=== PATIENT | male | born 1990 | race Caucasian/White ===

== ENCOUNTER 2024-09-10 16:24 | Emergency (ER) | payer MEDICAID, MEDICARE ==
[2024-09-10 16:57] LABS: BASOPHILS ABSOLUTE AUTO 0.02 10^3/uL (0.00-0.10); BASOPHILS PERCENT AUTO 0.2 % (0.0-1.0); EOSINOPHILS ABSOLUTE AUTO 0.18 10^3/uL (0.10-0.30); EOSINOPHILS PERCENT AUTO 1.7 % (1.0-3.0); HEMATOCRIT 38.2 % (40.0-52.0); HEMOGLOBIN 12.5 g/dL (13.0-17.0); IMMATURE GRAN ABSOLUTE AUTO 0.03 10^3/uL (0.00-0.04); IMMATURE GRAN PERCENT AUTO 0.3 % (0.0-0.4); LYMPHOCYTES ABSOLUTE AUTO 2.83 10^3/uL (1.00-4.00); LYMPHOCYTES PERCENT AUTO 26.4 % (20.0-40.0); MEAN CORPUSCULAR HEMOGLOBIN 29.8 pg (27.0-31.0); MEAN CORPUSCULAR HGB CONC 32.7 g/dL (32.0-36.0); MEAN CORPUSCULAR VOLUME 91.2 fL (82.0-92.0); MEAN PLATELET VOLUME 10.2 fL (7.4-10.4); MONOCYTES ABSOLUTE AUTO 1.04 10^3/uL (0.10-0.80); MONOCYTES PERCENT AUTO 9.7 % (2.0-8.0); NEUTROPHILS ABSOLUTE AUTO 6.62 10^3/uL (2.50-7.00); NEUTROPHILS PERCENT AUTO 61.7 % (50.0-70.0); PLATELET COUNT,PLT 213 10^3/uL (150-400); RED BLOOD CELL COUNT 4.19 10^6/uL (4.50-6.00); WHITE BLOOD CELL COUNT,WBC 10.72 10^3/uL (5.00-10.00)
[2024-09-10] MEDS: Sodium Chloride 0.9% 1,000 ML IV SCH (17:14)
[2024-09-10] MEDS: fentaNYL 100 MCG/2 ML SDV IVPUSH ONE ×2 (17:20→18:28)
[2024-09-10 17:33] LABS: ALANINE AMINOTRANSFERASE,ALT 43 U/L (14-63); ALBUMIN 2.68 g/dL (3.40-5.00); ALKALINE PHOSPHATASE 117 U/L (46-116); ANION GAP 12.1 mmol/L (5-15); ASPARTATE AMNIOTRANSFERASE,AST 33 U/L (15-37); BILIRUBIN TOTAL 0.1 mg/dL (0.2-1.0); BLOOD UREA NITROGEN,BUN 42 mg/dL (7-18); CALCIUM 9.4 mg/dL (8.7-10.3); CARBON DIOXIDE,CO2 30.4 mmol/L (21.0-32.0); CHLORIDE,CL 102 mmol/L (98-107); CREATININE 2.91 mg/dL (0.51-1.17); GLUCOSE RANDOM 109 mg/dL (70-140); POTASSIUM,K 4.5 mmol/L (3.5-5.1); PROTEIN TOTAL,TP 7.7 g/dL (6.4-8.2); SODIUM,NA 140 mmol/L (136-145)
[2024-09-10 17:46] LABS: C-REACTIVE PROTEIN 33.09 mg/dL (0.00-0.50); ESTIMATED GFR 28 mL/min (>=60)
[2024-09-10 18:08] LABS: APPEARANCE,URINE TURBID (CLEAR); COLOR,URINE OTHER (YELLOW); PH,URINE 6.5 (5.0-9.0)
[2024-09-10 18:09] LABS: BILIRUBIN,URINE SMALL (NEGATIVE); EPITHELIAL CELLS,URINE RARE /LPF; GLUCOSE,URINE NEGATIVE (NEGATIVE); KETONES,URINE TRACE mg/dL (NEGATIVE); LEUKOCYTE ESTERASE,URINE LARGE (NEGATIVE); NITRITE,URINE POSITIVE (NEGATIVE); OCCULT BLOOD,URINE LARGE (NEGATIVE); PROTEIN,URINE >=300 mg/dL (NEGATIVE); RBC,URINE 20-30 /HPF (0-5); WBC,URINE PACKED /HPF (0-5)
[2024-09-10 18:10] LABS: BACTERIA,URINE MANY /HPF (NONE TO FEW)
[2024-09-10] MEDS: cefTRIAXone 2 GM Vial IVPUSH ONE (18:20)
[2024-09-10] MEDS: Acetaminophen 500 MG Tab PO ONE (18:28)
[2024-09-10 21:09] VITALS: BP 131/86; PULSE 109
== END 2024-09-10 19:45 ==
LOC: KA.ED 16:24
DX: N17.9 Acute kidney failure, unspecified (principal); N13.6 Pyonephrosis; Z88.5 Allergy status to narcotic agent; Z88.1 Allergy status to other antibiotic agents; Z79.899 Other long term (current) drug therapy
CPT/HCPCS: 36415; 74176; 80053; 81001; 83605; 85025; 86140; 87040; 96361; 96374; 96375; 96376; 99285-25; A9270-GY; J0696; J3010; J7030

== ENCOUNTER 2024-09-22 14:57 | Emergency (ER) | payer MEDICARE ==
[2024-09-22] MEDS: Acetaminophen/HYDROcodone 325-5 MG Tab PO ONE (15:40)
[2024-09-22 16:10] VITALS: BP 104/70; PULSE 94
== END 2024-09-22 15:50 ==
LOC: KA.ED 14:57
DX: Z46.6 Encounter for fitting and adjustment of urinary device (principal); R33.9 Retention of urine, unspecified; I12.9 Hypertensive chronic kidney disease with stage 1 through stage 4 chronic kidney disease, or unspecified chronic kidney disease; I25.10 Atherosclerotic heart disease of native coronary artery without angina pectoris; I25.2 Old myocardial infarction; N18.30 Chronic kidney disease, stage 3 unspecified; Z88.8 Allergy status to other drugs, medicaments and biological substances; Z79.899 Other long term (current) drug therapy; Z79.01 Long term (current) use of anticoagulants; Z79.82 Long term (current) use of aspirin
CPT/HCPCS: 51705; 99284; A9270-GY